=== PATIENT | male | born 1985 | race Caucasian/White ===

== ENCOUNTER 2016-06-12 18:42 | Emergency (ER) | payer OTHER ==
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
[2016-06-12 21:19] VITALS: BP 164/98
== END 2016-06-12 21:17 | disposition home or self-care (01) ==
LOC: ED 18:42
DX: S09.90XA Unspecified injury of head, initial encounter (principal); R51 Headache; M54.2 Cervicalgia; M25.511 Pain in right shoulder; Z87.891 Personal history of nicotine dependence; V49.9XXA Car occupant (driver) (passenger) injured in unspecified traffic accident, initial encounter; Y93.9 Activity, unspecified; Y92.9 Unspecified place or not applicable
CPT/HCPCS: 70450; 72125; 99282

== ENCOUNTER 2016-11-22 10:45 | Observation (INO) | payer BC ==
[2016-11-22] MEDS ORDERED: NS 0.9% 1000 ML* 1,000 ML IV ONE (12:01)
[2016-11-22 12:03] LABS: Hematocrit 43 % (42-52); Hemoglobin 14.1 g/dl (14.0-18.0); Mean Corpuscular HGB Conc 33 g/dl (31-36); Mean Corpuscular Hemoglobin 27 pg (27-31); Mean Corpuscular Volume 83 fL (80-94); Mean Platelet Volume 8 um3 (7.4-10.4); Red Blood Count 5.15 10^6/ul (4.0-5.4); Red Cell Distribution Width 14 % (10.5-15); White Blood Count 7.4 10^3/ul (3.5-10.8)
[2016-11-22] MEDS ORDERED: Nitroglycerin TAB 0.4 MG* 0.4 MG TAB SL ONE (12:03)
--- NOTE | 2016-11-22 12:05 | ED ---
Cheo Steevns Alfonso, scribed for Elizabeth Connell MD on 11/22/16 at 1123 . HPI Chest Pain - HPI Summary HPI Summary: This patient is a 31 year old M BIBA presenting to [facility] with a chief complaint of chest pain since 30 minutes [employer]. The CP radiates to jaw, back, and shoulder blades. Pt states has nausea and SOB with discomfort. Pt states had diaphoresis. Pt was given 324mg ASA, and 0.4 NTG [employer] in ambulance with improvement. Pt denies belching, bloating, or stomach fullnesss. The CC is described as tight, squeezing pain, grabbing and twisting my spine. Pt also reports symptoms are substernal. The patient rates the pain 6/10 at onset and currently 3/10 in severity. Symptoms improved by ambulance treatment. Patient reports lightheadedness, diaphoresis, nausea, Pt was not doing anything strenuous at the time of pain. No h/o similar sx. . Pain not reproducible. FMHx of [place]. Tobacco abuse disorder. Denies substance use and alcohol use. 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 Patients medication reviewed this visit. - History of Current Complaint Chief Complaint: EDChestPainROMI Time Seen by Provider: 11/22/16 11:12 Hx Obtained From: Patient Onset/Duration: Started Hours Ago - this morning Initial Severity: Moderate - 6/10 Current Severity: Mild - 3/10 Pain Intensity: 3 Pain Scale Used: 0-10 Numeric Chest Pain Location: Discrete at: - Substernal Chest Pain Radiates: Yes Chest Pain Radiates To:: Back, Shoulder, Jaw Character: Burning, Other: - tight, "grabbing and twisting my spine" Aggravating Factor(s): Nothing Alleviating Factor(s): Medication - ASA and NTG [employer] by ambulance Associated Signs and Symptoms: Positive: Other: - . Patient reports lightheadedness, SOB, diaphoresis, nausea, weight gain (recent 40 lb) and sinus pressure. Patient denies ear pain, belching, bloating, stomach fullness, and pain when raising arms. - Risk Factors Pulmonary Embolism Risk Factors: Negative - Allergy/Home Medications Allergies/Adverse Reactions: Allergies Allergy/AdvReac Type Severity Reaction Status Date / Time No Known Allergies Allergy Verified 06/12/16 18:56 Home Medications: Home Medications NK [No Home Medications Reported] 11/22/16 [History Confirmed 11/22/16] PMH/Surg Hx/FS Hx/Imm Hx Previously Healthy: Yes Endocrine/Hematology History: Denies: Hx Diabetes, Hx Thyroid Disease Cardiovascular History: Denies: Hx Hypertension Respiratory History: Denies: Hx Asthma, Hx Chronic Obstructive Pulmonary Disease (COPD) GI History: Denies: Hx Ulcer - Surgical History Surgery Procedure, Year, and Place: wisdom teeth Infectious Disease History: No Infectious Disease History: Denies: Hx Hepatitis, Hx Human Immunodeficiency Virus (HIV), History Other Infectious Disease, Traveled Outside the [place] in Last 30 Days - Family History Known Family History: Positive: Hypertension - Social History Occupation: Employed Full-time Lives: With Family Alcohol Use: Rare Substance Use Type: Reports: None Substance Use Comment - Amount & Last Used: ADDERALL Smoking Status (MU): Former Smoker Type: Cigarettes Have You Smoked in the Last Year: No Review of Systems Positive: Skin Diaphoresis, Other - weight gain Eyes: Negative Positive: Other - POSITIVE: sinus pressure. Negative: Ear Ache Cardiovascular: Negative Positive: Shortness Of Breath Positive: Nausea Genitourinary: Negative Musculoskeletal: Negative Skin: Negative Neurological: Other - Lightheadedness Psychological: Normal All Other Systems Reviewed And Are Negative: Yes Physical Exam Triage Information Reviewed: Yes Vital Signs On Initial Exam: Initial Vitals Temp Pulse Resp BP Pulse Ox 99.5 F 69 16 140/73 97 11/22/16 11:02 11/22/16 11:02 11/22/16 11:02 11/22/16 11:02 11/22/16 11:02 Vital Signs Reviewed: Yes Appearance: Positive: Well-Appearing, No Pain Distress, Well-Nourished Skin: Positive: Warm, Skin Color Reflects Adequate Perfusion, Dry Eyes: Positive: Normal, EOMI, DONNIE ENT: Positive: Normal ENT inspection, Hearing grossly normal, Pharynx normal, TMs normal Neck: Positive: Supple, Nontender, No Lymphadenopathy Respiratory/Lung Sounds: Positive: Clear to Auscultation, Breath Sounds Present , Decreased Breath Sounds Cardiovascular: Positive: Normal, RRR, Other - no bruits b/l. Negative: Murmur Abdomen Description: Positive: Nontender, No Organomegaly, Soft Bowel Sounds: Positive: Present Musculoskeletal: Positive: Normal, Strength/ROM Intact, Other - Full AROM x 4 - not able to Neurological: Positive: Normal, Sensory/Motor Intact, Alert, Oriented to Person Place, Time Psychiatric: Positive: Normal AVPU Assessment: Alert - [place] Coma Scale Best Eye Response: 4 - Spontaneous Best Motor Response: 6 - Obeys Commands Best Verbal Response: 5 - Oriented Coma Scale Total: 15 Diagnostics - Vital Signs Vital Signs Temp Pulse Resp BP Pulse Ox 11/22/16 11:02 99.5 F 69 16 140/73 97 - Laboratory Result Diagrams: 11/22/16 11:48 11/22/16 11:48 Lab Statement: Any lab studies that have been ordered have been reviewed, and results considered in the medical decision making process. - CT CTA Chest CT Interpretation Completed By: Radiologist - NORMAL CTA OF THE CHEST. - EKG 1114 Cardiac Rate: NL - BPM 65 EKG Rhythm: Sinus Rhythm EKG Interpretation: Inverted T-wave in III. No acute ST segment. Re-Evaluation - Re-Evaluation First Eval Re-Evaluation Time: 14:24 Change: Improved - reviewed labs and CTA Pt reports pain improved after nitro - will apply paste will discuss with hospitalist for obs admission pt's at bedside - agreement with plan Chest Pain Course/Dx - Course Course Of Treatment: Pt presents with chest pressure, back pain and radiation to jaw. Sx improved with nitro and ASA. Pt without h/o cardiac dx. Will check labs, Ekg, CTA. IVF. Pt given ASA [employer]. anticipate observation - Diagnoses Provider Diagnoses: Chest pain, T wave inversion in EKG - Provider Notifications Discussed Care Of Patient With: Leona Dean MD Time Discussed With Above Provider: 14:29 Instructed by Provider To: Other - Consulted Dr. Dean (hospitalist) who agrees to admit pt for observation. Discharge - Discharge Plan Condition: Improved Disposition: ADMITTED TO [facility] Discharge Disposition Comment: Observation Referrals: No Primary Care Phys,NOPCP [Primary Care Provider] - The documentation as recorded by the Cheo ji Alfonso accurately reflects the service I personally performed and the decisions made by me, Elizabeth Connell MD.
[2016-11-22 12:15] LABS: BUN/Creatinine Ratio 13.1 (8-20); Calcium 8.9 mg/dL (8.6-10.3); EGFR African American 103.7 (>60); EGFR Non-African American 80.6 (>60); Globulin 2.8 g/dL (2-4); Potassium 3.8 mmol/L (3.5-5.0); Total Bilirubin 1.1 mg/dL (0.2-1.0); Total Protein 6.8 g/dL (6.4-8.9)
[2016-11-22] MEDS ORDERED: Iohexol 350* (CONTRAST) 500 ML MDV IV ONE (12:32)
--- NOTE | 2016-11-22 14:10 | RAD ---
INDICATION: Burning chest pain since 1030 hours COMPARISON: None TECHNIQUE: Axial source images were acquired following the administration of 80 mL Omnipaque [address] angiographic technique. Coronal and sagittal reconstructed images were constructed and reviewed. FINDINGS: There there are no filling defects in the pulmonary arteries to indicate acute pulmonary embolic disease. The heart is normal in size. There is no evidence of pericardial effusion. There is no evidence of aortic aneurysm or dissection. There are no focal infiltrates or effusions. There are no pulmonary parenchymal masses. There is no mediastinal, hilar, or axillary lymphadenopathy. The visualized osseous structures appear normal. Limited views of the upper abdomen show no abnormalities. IMPRESSION: Normal CTA of the chest.
[2016-11-22] MEDS ORDERED: Nitroglycerin 2% OINT* 1 GM PAK TOPICAL ONE (14:23)
[2016-11-22] MEDS ORDERED: PROCHLORPERAZINE INJ 5 MG/ML 2 ML VIAL IV PRN (16:22)
[2016-11-22] MEDS ORDERED: Acetaminophen TAB* 325 MG PO PRN (16:22)
[2016-11-22] MEDS ORDERED: Morphine INJ* 2 MG/ML 1 ML SYRINGE IV PRN (16:22)
[2016-11-22] MEDS ORDERED: Nitroglycerin TAB 0.4 MG* 0.4 MG TAB SL PRN (16:25)
[2016-11-22] MEDS: Heparin VIAL(*) 5000 UNITS/ML VIAL (FIVE THOUSAND) SUBCUT SCH (21:31)
--- NOTE | 2016-11-22 22:04 | HP ---
HISTORY AND PHYSICAL: DATE OF ADMISSION: 11/22/16 TIME OF EVALUATION: 3 p.m. PRIMARY CARE PHYSICIAN: The patient has no primary care provider. CHIEF COMPLAINT: Chest pain. HISTORY OF PRESENT ILLNESS: Mr. Crystal is a 31-year-old male with a past medical history of obesity that presents to the emergency room with complaints of severe chest pain. 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 He states the pain was a 7/10 intensity, pressure like in nature. He decided to walk around his office to see if he would have any relief, but he did not. This was associated with mild shortness of breath and his work colleagues pointed that he was very sweaty. He had some nausea and after 10 minutes, the pain was too severe so EMS was summoned. The patient states his pain was a 7/ 10. He received the first nitroglycerin dose in the ambulance and the pain was down to a 5 when he came to the emergency room and after receiving his second nitro, he states that he is almost pain free at this time. He states that for a couple of months he has had similar episodes of pain, but much milder, 2/10 intensity, lasting 20 to 30 seconds, sometimes at rest, sometimes with exertion, but he could not pinpoint any alleviating or precipitating factors. In fact, he states that he hiked [place] last week with his family and he had no chest pain or shortness of breath after it. He denies fever, chills, cough, or any other complaints. The patient had a very rich meal with friends yesterday that consisted of ribs, Mac 'n' Cheese with [place] and Casserole and he also had 4 or 5 hard ciders, but he states that this kind of meal during the weekends is not unusual for him and that he has no indigestion or heartburn. PAST MEDICAL HISTORY: 1. Obesity with a BMI of 38. 2. Prior history of tobacco abuse. MEDICATION LIST: None. ALLERGIES: No known drug allergies. FAMILY HISTORY: There is a strong family history of diabetes, hypertension. His grandfather has a history of heart problems, but as far as he knows, no one had a heart attack. SOCIAL HISTORY: The patient used to be a smoker since his early 20s, only 2 or 3 cigarettes a day and he quit a couple of months ago. He states that he drinks sporadically, but he actually had 4 hard ciders yesterday. He denies any drug use. 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 Surrogate decision maker is his , Lorrie Crystal, phone number is [phone]. REVIEW OF SYSTEMS: A 14-point review of systems was performed and all the pertinent negatives and positive findings are in the HPI. PHYSICAL EXAMINATION GENERAL: The patient is a pleasant, young, obese male, sitting up in the ED stretcher, in no acute distress. VITAL SIGNS: Temperature is 99.5, heart rate is 69, respiratory rate is 20, oxygen saturation is 97% on room air, blood pressure is 124/74, HEENT: Pupils are equal. Moist mucous membranes. CHEST: Breath sounds present bilaterally with no added sounds. CVS: Normal S1, S2. Regular rate and rhythm. ABDOMEN: Obese, soft, nontender, nondistended. Bowel sounds are present. EXTREMITIES: No edema. NEUROLOGIC: He is alert, awake, oriented x3. Able to move all 4 extremities. LABORATORY AND IMAGING DATA: The patient had a CBC that showed a WBC of 7.4, hemoglobin of 14.1, hematocrit of 43, platelets of 197 with 67% neutrophils. Chemistry showed a sodium of 134, potassium of 3.8, chloride of 103, bicarb of 27, BUN of 14, creatinine of 1.07, glucose of 113, calcium of 8.9. Magnesium of 2. Total bilirubin 1.1, AST 22, ALT 30. Troponin is 0. Lipase is 13. EKG done on 11/22/16 at 11:14 a.m. showed sinus rhythm at 65 beats per minute with no ST-T changes, only a normal early repolarization pattern in the anterior leads. CTA of the chest was a normal CTA of the chest. ASSESSMENT AND PLAN: Mr. Crystal is a 31-year-old male with a past medical history of obesity, prior history of tobacco abuse that presents to the emergency room with complaints of chest pain that was relieved by nitro. , 1. Chest pain, rule out acute coronary syndrome. The patient will be admitted as observation to the telemetry floor. We are going to check serial troponins. If acute coronary syndrome is ruled out, he will undergo exercise Myoview stress test tomorrow morning. The major concern at this point is that his pain is cardiac in nature, but considering the very heavy meal he had yesterday, I believe it could also be GI. He could have esophageal spasm that was relieved by nitroglycerin. If his cardiac workup is negative, I believe he will benefit of arranging primary care as outpatient to have further GI workup performed. 2. DVT prophylaxis. The patient has a score of 1 on a DVT Prophylaxis Risk Assessment Guide, but he is not really ambulating a lot at this point, so he will be started on subcutaneous heparin. 3. Code status is full. TIME SPENT: Approximately 55 minutes were spent with the patient interview, medical record review, physical examination to complete the admission, more than half of this time spent [id number] with the patient in coordination of care. [id number]/CPS #: [id number] MTDD
[2016-11-23] MEDS: Heparin VIAL(*) 5000 UNITS/ML VIAL (FIVE THOUSAND) SUBCUT SCH ×3 (06:08→22:01)
[2016-11-23] MEDS: Aspirin EC Low Dose* 81 MG TAB.EC PO SCH (11:03)
[2016-11-23 11:36] LABS: HDL Cholesterol 39.2 mg/dL
--- NOTE | 2016-11-23 15:25 | PN ---
Subjective Date of Service: 11/23/16 Interval History: HOSPITALIST PROGRESS NOTE Patient seen and examined at bedside. He feels well today, no further episodes of chest pain. Family History: Unchanged from Admission Social History: Unchanged from Admission Past Medical History: Unchanged from Admission Objective Active Medications: Acetaminophen (Tylenol Tab*) 650 mg PO Q6H PRN PRN Reason: pain/fever Aspirin (Aspirin Ec Low Dose*) 81 mg PO DAILY [facility] Last Admin: 11/23/16 11:03 Dose: Not Given Heparin Sodium (Porcine) (Heparin Vial(*)) 5,000 units SUBCUT Q8HR [facility] Last Admin: 11/23/16 14:38 Dose: Not Given Morphine Sulfate (Morphine Inj (Syringe)*) 2 mg IV Q4H PRN PRN Reason: PAIN Nitroglycerin (Nitroglycerin Tab 0.4 Mg*) 0.4 mg SL Q5M PRN PRN Reason: ANGINA Prochlorperazine Edisylate (Compazine Inj*) 5 mg IV Q6H PRN PRN Reason: NAUSEA/VOMITING Vital Signs 11/23/16 11:35 Temperature 98.4 F Pulse Rate 61 Respiratory 16 Rate Blood Pressure 114/75 (mmHg) O2 Sat by Pulse 95 Oximetry Oxygen Devices in Use Now: None Appearance: Young gentleman lying in bed in [facility]. Eyes: No Scleral Icterus Ears/Nose/Mouth/Throat: Mucous Membranes Moist Neck: Trachea Midline Respiratory: Symmetrical Chest Expansion and Respiratory Effort, Clear to Auscultation Cardiovascular: NL Sounds; No Murmurs; No JVD, RRR Extremities: No Edema Neurological: Alert and Oriented x 3, NL Muscle Strength and Tone Lines/Tubes/Other Access: Clean, Dry and Intact Peripheral IV Nutrition: Taking PO's Result Diagrams: 11/22/16 11:48 11/22/16 11:48 Assess/Plan/Problems-Billing Assessment: Mr. Crystal is a 31yo M with PMH of obesity, prior h/o tobacco use, who presented to ED with c/o CP. - Patient Problems (1) Chest pain Comment: - ACS ruled out. - For second part of his stress test tomorrow. - Continue to monitor. (2) DVT prophylaxis Comment: - SQ heparin. (3) Full code status Status and Disposition: OBV. Anticipate d/c in AM if stress test negative.
[2016-11-24] MEDS: Heparin VIAL(*) 5000 UNITS/ML VIAL (FIVE THOUSAND) SUBCUT SCH (06:24)
[2016-11-24] MEDS: Aspirin EC Low Dose* 81 MG TAB.EC PO SCH (08:48)
--- NOTE | 2016-11-24 09:15 | RAD ---
Edited for charges. INDICATION: Chest pain, former tobacco use. Family history of heart disease. COMPARISON: No relevant prior exams available on the [facility] PACS for comparison. TECHNIQUE: November 24, 2016, 26.310 mCi of Tc-99m Myoview were administered IV. SPECT images of the heart were obtained. November 23, 2016. Under the direction of Dr. Bar, an exercise stress test was performed. The patient achieved a peak heart rate of 176 bpm, 93 % of the age-predicted maximum. Subsequently, the patient was given an IV injection of 26.600 mCi Tc-99m Myoview. SPECT images of the heart were obtained and a gated wall motion study was performed. FINDINGS: Gated wall motion images were obtained at stress and demonstrate wall motion to be within normal limits. The calculated left ventricular ejection fraction is 58 % at stress and 58 % at rest. Estimated LEFT ventricular end diastolic volume is 130 mL at stress and 159 mL at rest. TID 0.7. Diaphragmatic attenuation noted. Based on review of the attenuation corrected and non corrected images the distribution of radiopharmaceutical within the myocardium on the stress and rest images is within normal limits. No fixed or reversible regions of hypoperfusion evident. IMPRESSION: 1. No evidence for stress induced myocardial ischemia or presence of an infarct. 2. Normal left ventricular wall motion and ejection fraction. ASSESSMENT: LOW RISK. Based on imaging criteria from ACC/AHA 2002 Guideline Update for the Management of Patients With Chronic Stable Angina Table 23. Noninvasive Risk Stratification. MTDD
[2016-11-24 11:56] VITALS: BP 139/74
--- NOTE | 2016-11-25 06:06 | DS ---
CC: Dr. Denny * DISCHARGE SUMMARY: DATE OF ADMISSION: 11/22/16 DATE OF DISCHARGE: 11/24/16 DISCHARGE DIAGNOSIS: Atypical chest pain, acute coronary syndrome ruled out, likely esophageal in nature. SECONDARY DIAGNOSIS: Obesity. MEDICATION LIST: None. HOSPITAL COURSE: Mr. Crystal is a 31-year-old male with a past medical history as stated above that presented to the emergency room with complaints of severe chest pain. The patient states that he was in his usual state of health, working at his computer when he developed pain between his shoulder blades radiating to his chest, shoulders, and going up to the left side of his jaw, pressure in nature associated with diaphoresis. For more details about his presentation, I refer you to his history and physical. The patient was admitted to the telemetry floor for further workup. He had a CTA of the chest that showed no filling defect in the pulmonary arteries to indicate acute pulmonary embolic disease. There was no evidence of aortic aneurysm or dissection. It was basically a normal CTA of the chest. He had no significant changes on his EKG. No significant arrhythmias on telemetry and serial troponins were negative. He underwent a 2-day exercise Myoview stress test that showed no evidence for stress-induced myocardial ischemia or process of an infarct with a normal left ventricular wall motion and ejection fraction. I suspect his episode of chest pain is likely esophageal in nature. The day prior to the beginning of his symptoms, the patient had a very rich meal of ribs , Mac 'n' Cheese with kaur and some sort of casserole and also he had 4 or 5 hard ciders with it. At this point, he would prefer not to take any medications , so his plan is to improve his diet. He now has a primary care provider (Dr. Denny) and he will see him on December 01. If he continues to have episodes like this, I believe he should be started on a PPI, but the patient would rather try to work on his eating habits first. He is medically stable to be discharged home today. The patient also had a lipid profile performed and it showed triglycerides of 91 , total cholesterol of 138, LDL of 81 with a HDL of 39.2. PHYSICAL EXAMINATION: Vital Signs: Temperature 98.0, heart rate 78, respiratory rate 16, oxygen saturation is 97% on room air, blood pressure is 139 /74. General: The patient is a young male sitting up in bed in no acute distress. CVS: Normal S1, S2. Regular rate and rhythm. Chest: Breath sounds present bilaterally with no added sounds. Abdomen: Obese, soft. Bowel sounds present. Extremities: No edema. Neuro: He is alert and oriented x3. Able to move all 4 extremities. DIET: Regular diet. ACTIVITY: As tolerated. DISPOSITION: To home. STATUS WHILE IN THE HOSPITAL: Observation. Please keep in mind, this is a summarized version of this patient's hospital stay. If you need more information, please feel free to call me at [phone] or please obtain the full medical records. TIME SPENT: Approximately 45 minutes was spent to complete the discharge. [id number] #: [id number] MTDD
== END 2016-11-24 11:55 | disposition home or self-care (01) ==
LOC: ED 10:45 → MEDTELE 15:25
PROVIDERS: ADMIT Internal Medicine; ATTEND Internal Medicine
DX: R07.89 Other chest pain (principal); R06.02 Shortness of breath; E66.9 Obesity, unspecified; Z87.891 Personal history of nicotine dependence; Z83.3 Family history of diabetes mellitus; Z82.49 Family history of ischemic heart disease and other diseases of the circulatory system; R61 Generalized hyperhidrosis
CPT/HCPCS: 36415; 71275; 78452; 80053; 80061; 83690; 83735; 84484; 85025; 86900; 86901; 93005; 93017; 96360; 96372; 99284; A9270-GY; A9502; G0378; J1644; Q9967

== ENCOUNTER 2017-10-29 13:05 | Emergency (ER) | payer BC, OTHER ==
[2017-10-29] MEDS ORDERED: NS 0.9% 1000 ML* 1,000 ML IV ONE (13:57)
--- NOTE | 2017-10-29 14:06 | ED ---
Abdominal Pain/Male - HPI Summary HPI Summary: This is [facility] documenting for attending Dr. Court Connell This patient is a 31 year old M presenting to [facility] with a chief complaint of abd pain since 10/24 or 10/25. He endorses the pain as constant, located in his right flank, RUQ, and RLQ. Pt endorses nausea, decreased appetite, and dysuria. He denies emesis. PMHx kidney stones in the right side. Pt denies SHx cholecystectomy. Pt states he ate 1 granola bar this AM, nothing else. He denies drinking and smoking. - History of Current Complaint Chief Complaint: EDFlankPain Stated Complaint: ABD/FLANK PAIN Time Seen by Provider: 10/29/17 13:53 Hx Obtained From: Patient Onset/Duration: Lasting Days, Still Present Timing: Constant Severity Initially: Moderate Severity Currently: Moderate Pain Intensity: 6 Pain Scale Used: 0-10 Numeric Location: Discrete At: RUQ, Discrete At: RLQ, Flank - right Radiates: No Aggravating Factor(s): Nothing Alleviating Factor(s): Nothing Associated Signs And Symptoms: Positive: Urinary Symptoms, Decreased Appetite, Nausea. Negative: Fever - Allergies/Home Medications Allergies/Adverse Reactions: Allergies Allergy/AdvReac Type Severity Reaction Status Date / Time No Known Allergies Allergy Verified 10/29/17 13:11 PMH/Surg Hx/FS Hx/Imm Hx Endocrine/Hematology History: Denies: Hx Diabetes, Hx Thyroid Disease Cardiovascular History: Denies: Hx Angina, Hx Coronary Artery Disease, Hx Hypercholesterolemia, Hx Hypertension, Hx Myocardial Infarction, Hx Valvular Heart Disease Respiratory History: Denies: Hx Asthma, Hx Chronic Obstructive Pulmonary Disease (COPD) GI History: Denies: Hx Ulcer Sensory History: Denies: Hx Contacts or Glasses, Hx Legally Blind, Hx Deafness, Hx Hearing Aid Opthamlomology History: Denies: Hx Contacts or Glasses, Hx Legally Blind EENT History: Denies: Hx Deafness - Surgical History Surgery Procedure, Year, and Place: wisdom teeth Infectious Disease History: No Infectious Disease History: Denies: Hx Hepatitis, Hx Human Immunodeficiency Virus (HIV), History Other Infectious Disease, Traveled Outside the [place] in Last 30 Days - Family History Known Family History: Positive: Hypertension - Social History Alcohol Use: None Hx Substance Use: No Substance Use Type: Reports: None Substance Use Comment - Amount & Last Used: ADDERALL Smoking Status (MU): Former Smoker Type: Cigarettes Have You Smoked in the Last Year: No Review of Systems Negative: Fever Positive: Abdominal Pain, Nausea. Negative: Vomiting Positive: dysuria, flank pain All Other Systems Reviewed And Are Negative: Yes Physical Exam - Summary Physical Exam Summary: Appearance: Well appearing, no pain distress Skin: warm, dry, reflects adequate perfusion Head/face: normal Eyes: EOMI, DONNIE ENT: normal Neck: supple, non-tender Respiratory: CTA, breath sounds present Cardiovascular: RRR, pulses symmetrical Abdomen: tenderness in RUQ, RLQ, soft Bowel: present Musculoskeletal: normal, strength/ROM intact Neuro: normal, sensory motor intact, A&Ox3 Triage Information Reviewed: Yes Vital Signs On Initial Exam: Initial Vitals Temp Pulse Resp BP Pulse Ox 97.9 F 78 17 164/102 97 10/29/17 13:08 10/29/17 13:08 10/29/17 13:08 10/29/17 13:08 10/29/17 13:08 Vital Signs Reviewed: Yes Diagnostics - Vital Signs Vital Signs Temp Pulse Resp BP Pulse Ox 10/29/17 13:08 97.9 F 78 17 164/102 97 - Laboratory Result Diagrams: 10/29/17 14:12 10/29/17 16:29 Lab Statement: Any lab studies that have been ordered have been reviewed, and results considered in the medical decision making process. - CT CT A/P CT Interpretation: No Acute Changes CT Interpretation Completed By: Radiologist - No acute CT findings. No mass or inflammatory changes. - Ultrasound No standard instances Ultrasound Interpretation: No Acute Changes Ultrasound Interpretation Completed By: Radiologist - Mild hepatomegaly with hepatic steatosis, otherwise negative. Dr. Yun has reviewed this report. Re-Evaluation - Re-Evaluation First Eval Re-Evaluation Time: 17:31 Change: Unchanged Comment: Discussed (-) CT results, pt still in pain, discussed obtaining US GB. Second Eval Re-Evaluation Time: 18:48 Change: Unchanged Comment: Discussed (-) US results, discharge. Abdominal Pain Fem Course/Dx - Course Course Of Treatment: A 31-year-old M presents to the ED with a CC of abd pain for 5 days. (+) flank, RUQ, RLQ pain, nausea, decreased appetite, dysuria. (-) emesis. PMHx renal calculi right side. Only eaten 1 granola bar this AM, no other food. A CT A/P was (-) . A GB US showed mild hepatomegaly with steatosis, but was otherwise (-). In the ED course, pt was given zofran, morphine, omnipaque, and nl saline. - Diagnoses Provider Diagnoses: Nonspecific abdominal pain Discharge - Sign-Out/Discharge Documenting (check all that apply): Patient Departure - discharge - Discharge Plan Condition: Stable Disposition: HOME Prescriptions: Ibuprofen TAB* [Motrin TAB* 600 MG] 600 mg PO Q8H PRN #15 tab MDD 3 PRN Reason: Pain Patient Education Materials: Abdominal Pain (ED) Referrals: Orlando Denny MD [Primary Care Provider] - 3 Days Additional Instructions: Return to the emergency department for any new or worsening symptoms. - Billing Disposition and Condition Condition: STABLE Disposition: Home
[2017-10-29 14:26] LABS: ABS Basophils 0.1 10^3/ul (0-0.2); ABS Eosinophils 0.3 10^3/ul (0-0.6); ABS Lymphocytes 1.8 10^3/ul (1.0-4.8); ABS Monocytes 0.8 10^3/ul (0-0.8); ABS Neutrophils 4.2 10^3/ul (1.5-7.7); ABS Nucleated RBC 0.1 10^3/ul; Eosinophil % 3.8 % (0-6); Hematocrit 43 % (42-52); Hemoglobin 14.6 g/dl (14.0-18.0); Lymphocyte % 25.2 % (25-47); Mean Corpuscular HGB Conc 34 g/dl (31-36); Mean Corpuscular Hemoglobin 28 pg (27-31); Mean Corpuscular Volume 81 fL (80-94); Mean Platelet Volume 7.7 um3 (7.4-10.4); Nucleated Red Blood Cells % 0.6; Platelet Count 227 10^3/ul (150-450); Red Blood Count 5.31 10^6/ul (4.00-5.40); Red Cell Distribution Width 14 % (10.5-15); White Blood Count 7.1 10^3/ul (3.5-10.8)
[2017-10-29 14:41] LABS: EGFR Non-African American 85.2 (>60)
[2017-10-29] MEDS ORDERED: Iohexol 300* (CONTRAST) 10 ML SDV IV ONE (15:03)
[2017-10-29 15:30] LABS: Urine Appearance Clear; Urine Blood Negative (Negative); Urine Color Yellow; Urine Ketones Negative (Negative); Urine Protein Negative (Negative); Urine Red Blood Cell Absent (Absent); Urine Specific Gravity 1.018 (1.010-1.030); Urine Urobilinogen Negative (Negative); Urine White Blood Cell Trace(0-5/hpf) (Absent)
[2017-10-29] MEDS ORDERED: Morphine VIAL* 4 MG/ML VIAL (1 ml vial) IV ONE (16:20)
[2017-10-29] MEDS ORDERED: Ondansetron INJ* 2 MG/ML VIAL IV ONE (16:21)
[2017-10-29] MEDS ORDERED: Morphine INJ* 2 MG/ML 1 ML SYRINGE (TWO MG - NEW SYRINGE VERSION) ONE (16:25)
--- NOTE | 2017-10-29 17:25 | RAD ---
INDICATION: Right lower quadrant pain. Evaluate for acute appendicitis COMPARISON: CT December 23, 2014 TECHNIQUE: Axial source images were obtained from the hemidiaphragms to the symphysis pubis following administration of oral and intravenous contrast. 150 mL Omnipaque 300 was utilized. Coronal and sagittal reconstructed images were acquired. Lung bases: The lung bases are clear. Liver: The liver is normal in size. There are no masses. There is no ductal dilatation. Gallbladder: There are no calcified gallstones. There is no evidence of wall thickening or pericholecystic fluid. Spleen: The spleen is normal in size. There are no masses. Pancreas: There is no focal pancreatic mass or ductal dilatation. Adrenal glands: There is no evidence of adrenal mass. Kidneys: The kidneys are normal in size and position. There are prompt nephrograms and there is prompt excretion bilaterally. There are no renal parenchymal masses. There is no evidence of nephrolithiasis. Adenopathy: There is no evidence of adenopathy by size criteria. Fluid collections: There are no free or localized fluid collections. Vessels:There are no significant atherosclerotic changes involving the aorta. There is no focal aneurysm. The iliac vessels are normal in caliber. The IVC appears normal. GI tract: There are no acute CT bowel findings. There is no obstruction. The stomach and small bowel appear normal. The lower GI tract is normal. The cecum, ileocecal valve, and terminal ileum appear normal. The appendix is visualized and appear normal. Pelvic organs: The prostate and seminal vesicles appear normal Bladder: There are no bladder masses. Abdominal and pelvic soft tissues: There is a fat-containing left inguinal hernia, unchanged. Osseous structures: There is chronic L5 spondylolysis without associated anterolisthesis Other: None IMPRESSION: NO ACUTE CT FINDINGS. NO MASS OR INFLAMMATORY CHANGES
--- NOTE | 2017-10-29 18:43 | RAD ---
INDICATION: Right lower quadrant pain. Evaluate for acute appendicitis. Gallstones. Cholecystitis. COMPARISON: CT abdomen and pelvis same date TECHNIQUE: Longitudinal and transverse scans of the right upper quadrant were obtained. Doppler interrogation of the hepatic and portal venous system was performed. FINDINGS: Liver: There is hepatomegaly with hepatic steatosis. There are no masses . The liver measures 18 cm in cephalocaudal dimension. Vessels: There is normal hepatic and portal venous flow. Bile ducts: There is no evidence of intrahepatic or extrahepatic ductal dilatation. The common duct measures 0.4 cm. Gallbladder: The sonographic appearance of the gallbladder is normal. There is no evidence of cholelithiasis, thickening of the gallbladder wall, or pericholecystic fluid. Pancreas: The visualized pancreas appears normal Right kidney: The right kidney is normal in size and echogenicity. There are no masses or calculi. There is no evidence of hydronephrosis. The right kidney measures 13.5 x 6.6 x 6.9 cm. IVC and aorta: The aorta and superior vena cava appear normal. Fluid: There is no ascites. Other: None. IMPRESSION: Mild hepatomegaly with hepatic steatosis, otherwise negative
[2017-10-29 19:21] VITALS: BP 124/82
== END 2017-10-29 19:38 | disposition home or self-care (01) ==
LOC: ED 13:05
DX: R10.11 Right upper quadrant pain (principal); R10.31 Right lower quadrant pain; R11.0 Nausea; R30.0 Dysuria; R16.0 Hepatomegaly, not elsewhere classified; Z87.442 Personal history of urinary calculi; Z82.49 Family history of ischemic heart disease and other diseases of the circulatory system; Z87.891 Personal history of nicotine dependence
CPT/HCPCS: 36415; 74177; 76705; 80053; 81003; 81015; 83605; 83690; 84484; 85025; 85610; 85730; 87086; 96361; 96374; 96375; 99283; J2270; J2405; Q9967

== ENCOUNTER 2018-12-09 08:15 | Emergency (ER) | payer BC ==
[2018-12-09] MEDS ORDERED: Ketorolac INJ* 30 MG/ML 1 ML VIAL IV PUSH ONE (08:46)
[2018-12-09] MEDS ORDERED: NS 0.9% 1000 ML** 1,000 ML IV ONE (08:46)
[2018-12-09] MEDS ORDERED: Ondansetron INJ* 2 MG/ML VIAL IV ONE (08:46)
--- NOTE | 2018-12-09 08:47 | ED ---
Abdominal Pain/Male - HPI Summary HPI Summary: This patient is a 33 year old M presenting to ED with a chief complaint of RLQ abdominal pain that radiates to the R groin since 11/25/18. The pain is described as constant and aching. Patient also reports difficulty urinating and pedal edema. Patient saw UC two days ago. They performed urinalysis and bloodwork, which were negative. Patient has a hx of kidney stones, but states this is different. The patient rates the pain 6/10 in severity. Symptoms aggravated by nothing. Symptoms alleviated by nothing. Patient reports nausea, R testicular pain. Patient denies fever, chills, vomiting, burning while urination, SOB. PSHx of vasectomy. - History of Current Complaint Chief Complaint: EDAbdPain Stated Complaint: ABOMINAL AND GROIN PAIN/EDEMA PER PT Time Seen by Provider: 12/09/18 08:33 Hx Obtained From: Patient Onset/Duration: Lasting Weeks - Since 11/25/18, Still Present Timing: Constant, Lasting Weeks - Since 11/25/18 Severity Initially: Moderate Severity Currently: Moderate Pain Intensity: 6 Pain Scale Used: 0-10 Numeric Location: Discrete At: RLQ Radiates: Yes Radiates to: Other - Groin Character: Other: - Aching Aggravating Factor(s): Nothing Alleviating Factor(s): Nothing Associated Signs And Symptoms: Positive: Negative - SOB, chills, Urinary Symptoms - Difficulty urinating, negative burning, Nausea, Other - Edema, R testicular pain. Negative: Fever, Vomiting - Allergies/Home Medications Allergies/Adverse Reactions: Allergies Allergy/AdvReac Type Severity Reaction Status Date / Time No Known Allergies Allergy Verified 12/09/18 08:31 Home Medications: Home Medications NK [No Home Medications Reported] 12/09/18 [History Confirmed 12/09/18] PMH/Surg Hx/FS Hx/Imm Hx Endocrine/Hematology History: Denies: Hx Diabetes, Hx Thyroid Disease Cardiovascular History: Denies: Hx Angina, Hx Coronary Artery Disease, Hx Hypercholesterolemia, Hx Hypertension, Hx Myocardial Infarction, Hx Valvular Heart Disease Respiratory History: Denies: Hx Asthma, Hx Chronic Obstructive Pulmonary Disease (COPD) GI History: Denies: Hx Ulcer History: Denies: Hx Renal Disease Sensory History: Denies: Hx Contacts or Glasses, Hx Legally Blind, Hx Deafness, Hx Hearing Aid Opthamlomology History: Denies: Hx Contacts or Glasses, Hx Legally Blind - Surgical History Surgery Procedure, Year, and Place: wisdom teeth. Vasectomy 2018 Infectious Disease History: No Infectious Disease History: Denies: Hx Hepatitis, Hx Human Immunodeficiency Virus (HIV), History Other Infectious Disease, Traveled Outside the [place] in Last 30 Days - Family History Known Family History: Positive: Hypertension - Social History Alcohol Use: None Hx Substance Use: No Substance Use Type: Reports: None Hx Tobacco Use: Yes Smoking Status (MU): Former Smoker Type: Cigarettes Have You Smoked in the Last Year: No Review of Systems Negative: Fever, Chills Negative: Shortness Of Breath Positive: Abdominal Pain, Nausea. Negative: Vomiting Genitourinary: Other - Decreased/difficulty urinating, R testicular pain Negative: burning Positive: Edema All Other Systems Reviewed And Are Negative: Yes Physical Exam - Summary Physical Exam Summary: GENERAL: Patient is a well-developed and nourished M who is lying comfortable in the stretcher. Patient is not in any acute respiratory distress. HEAD AND FACE: Normocephalic EYES: PERRLA, EOMI x 2. EARS: Hearing grossly intact. MOUTH: Oropharynx within normal limits. NECK: Supple, trachea is midline, no adenopathy, no JVD, no carotid bruit. CHEST: Symmetric, no tenderness at palpation LUNGS: Clear to auscultation bilaterally. No wheezing or crackles. CVS: Regular rate and rhythm, S1 and S2 present, no murmurs or gallops appreciated. ABDOMEN: Tenderness to palpation in right groin and RLQ without rebound or guarding. GENITOURINARY: Aletheia, female RN present as supervisor carton and can supply witness. No tenderness to palpation in testicular area, no redness or warmth. EXTREMITIES: Full ROM in all major joints, no edema, no cyanosis or clubbing. NEURO: Alert and oriented x 3. No acute neurological deficits. Speech is normal and follows commands. SKIN: Dry and warm Triage Information Reviewed: Yes Vital Signs On Initial Exam: Initial Vitals Temp Pulse Resp BP Pulse Ox 98.6 F 76 16 155/96 97 12/09/18 08:17 12/09/18 08:17 12/09/18 08:17 12/09/18 08:17 12/09/18 08:17 Vital Signs Reviewed: Yes Diagnostics - Vital Signs Vital Signs Temp Pulse Resp BP Pulse Ox 12/09/18 08:17 98.6 F 76 16 155/96 97 - Laboratory Result Diagrams: 12/09/18 09:04 12/09/18 09:04 Lab Statement: Any lab studies that have been ordered have been reviewed, and results considered in the medical decision making process. - CT A/P CT Interpretation Completed By: Radiologist Summary of CT Findings: #. Normal appendix documented. No pathologic process of the alimentary tract evident. #. Negative for obstructive uropathy. #. Unchanged small fat-containing LEFT inguinal hernia without inflammatory change. #. No acute abdominal pelvic pathologic process evident. Dr. Jacob has reviewed this radiology report. Re-Evaluation - Re-Evaluation First Eval Re-Evaluation Time: 11:05 Comment: Discussed results with patient. Patient will be discharged home with dx of RLQ pain and left inguinal hernia. Patient understands and agrees with this plan. Patient states he will follow-up with primary care. Abdominal Pain Male Course/Dx - Course Course Of Treatment: This patient is a 33 year old M presenting to ED with a chief complaint of RLQ abdominal pain that radiates to the R groin since . In the ED course, patient received Toradol, fluids, and Zofran. UA obtained without abnormality. Blood work without abnormality except APTT 39.0, creatinine 1.18, glucose 140, total bili 1.40, CRP 14.27. CT A/P revealed #. Normal appendix documented. No pathologic process of the alimentary tract evident. #. Negative for obstructive uropathy. #. Unchanged small fat- containing LEFT inguinal hernia without inflammatory change. #. No acute abdominal pelvic pathologic process evident. Dr. Jacob has reviewed this radiology report. I discussed results with patient, and he reports feeling better. He is hemodynamically stable and safe for discharge. Strict return precautions given and he will otherwise follow up with his PCP. - Diagnoses Provider Diagnoses: RLQ abdominal pain, Left inguinal hernia Discharge ED - Sign-Out/Discharge Documenting (check all that apply): Patient Departure - Discharge Patient Received Moderate/Deep Sedation with Procedure: No - Discharge Plan Condition: Stable Disposition: HOME Patient Education Materials: Inguinal Hernia (ED), Abdominal Pain (ED) Referrals: Orlando Denny MD [Primary Care Provider] - 3 Days Additional Instructions: Follow up with your primary care physician in 1-3 days. RETURN TO THE EMERGENCY DEPARTMENT FOR CHANGING OR WORSENING SYMPTOMS. - Billing Disposition and Condition Condition: STABLE Disposition: Home - Attestation Statements Document Initiated by Leland: Yes Documenting Scribe: Amari Fang Provider For Whom Leland is Documenting (Include Credential): Felicia Jacob MD Scribe Attestation: IAmari, scribed for Felicia Jacob MD on 12/09/18 at 1153. Scribe Documentation Reviewed: Yes Provider Attestation: The documentation as recorded by the albertibeAmari accurately reflects the service I personally performed and the decisions made by me, Felicia Jacob MD Status of Scribe Document: Viewed
[2018-12-09 09:12] LABS: ABS Eosinophils 0.2 10^3/ul (0-0.6); ABS Lymphocytes 1.3 10^3/ul (1.0-4.8); ABS Monocytes 0.5 10^3/ul (0-0.8); ABS Neutrophils 4.2 10^3/ul (1.5-7.7); Eosinophil % 2.5 %; Hematocrit 44 % (42-52); Hemoglobin 14.8 g/dL (14.0-18.0); Lymphocyte % 21.5 %; Mean Corpuscular HGB Conc 34 g/dL (31-36); Mean Corpuscular Hemoglobin 28 pg (27-31); Mean Corpuscular Volume 81 fL (80-94); Mean Platelet Volume 7.6 fL (7.4-10.4); Platelet Count 206 10^3/uL (150-450); Red Blood Count 5.36 10^6 /uL (4.18-5.48); Red Cell Distribution Width 13 % (10-15); White Blood Count 6.2 10^3/uL (3.5-10.8)
[2018-12-09 09:32] LABS: INR 1.09 (0.82-1.09)
[2018-12-09 09:35] LABS: Albumin 4.3 g/dL (3.2-5.2); Albumin/Globulin Ratio 1.5 (1-3); BUN/Creatinine Ratio 10.2 (8-20); C Reactive Protein 14.27 mg/L (<8.01); Calcium 9.6 mg/dL (8.6-10.3); EGFR Non-African American 71.1 (>60); Globulin 2.8 g/dL (2-4); Potassium 3.8 mmol/L (3.5-5.0); Total Bilirubin 1.4 mg/dL (0.2-1.0); Total Protein 7.1 g/dL (6.4-8.9)
[2018-12-09] MEDS ORDERED: Iohexol 300* (CONTRAST) 10 ML SDV IV ONE (09:38)
[2018-12-09 09:58] LABS: Urine Appearance Clear; Urine Bilirubin Negative (Negative); Urine Blood Negative (Negative); Urine Color Yellow; Urine Glucose Negative (Negative); Urine Ketones Negative (Negative); Urine Nitrite Negative (Negative); Urine Protein Negative (Negative); Urine Specific Gravity 1.012 (1.010-1.030); Urine Urobilinogen Negative (Negative)
[2018-12-09 11:18] VITALS: BP 137/64
[2018-12-11 13:49] LABS: Chlamydia trachomatis NAA Negative (Negative); Neisseria gonorrhoeae (GC) NAA Negative (Negative)
== END 2018-12-09 11:22 | disposition home or self-care (01) ==
LOC: ED 08:15
DX: R10.31 Right lower quadrant pain (principal); K40.90 Unilateral inguinal hernia, without obstruction or gangrene, not specified as recurrent; Z87.891 Personal history of nicotine dependence; Z98.52 Vasectomy status
CPT/HCPCS: 36415; 74177; 80053; 81003; 83605; 83690; 85025; 85610; 85730; 86140; 87491; 87591; 96361; 96374; 96375; 99282; J1885; J2405; Q9967

== ENCOUNTER 2018-12-12 15:20 | Emergency (ER) | payer BC ==
[2018-12-12 15:43] LABS: ABS Basophils 0.1 10^3/ul (0-0.2); ABS Eosinophils 0.3 10^3/ul (0-0.6); ABS Lymphocytes 1.8 10^3/ul (1.0-4.8); ABS Monocytes 0.7 10^3/ul (0-0.8); Eosinophil % 4.1 %; Hematocrit 44 % (42-52); Hemoglobin 15.2 g/dL (14.0-18.0); Lymphocyte % 22.7 %; Mean Corpuscular HGB Conc 35 g/dL (31-36); Mean Corpuscular Hemoglobin 28 pg (27-31); Mean Corpuscular Volume 81 fL (80-94); Mean Platelet Volume 7.5 fL (7.4-10.4); Nucleated Red Blood Cells % 0.1; Platelet Count 233 10^3/uL (150-450); Red Blood Count 5.42 10^6 /uL (4.18-5.48); Red Cell Distribution Width 13 % (10-15); White Blood Count 7.9 10^3/uL (3.5-10.8)
[2018-12-12 15:58] LABS: Albumin 4.6 g/dL (3.2-5.2); Calcium 9.8 mg/dL (8.6-10.3); Potassium 4.5 mmol/L (3.5-5.0); Total Bilirubin 1.1 mg/dL (0.2-1.0)
[2018-12-12 16:04] LABS: Albumin/Globulin Ratio 1.5 (1-3); BUN/Creatinine Ratio 10.9 (8-20); C Reactive Protein 14.06 mg/L (<8.01); EGFR African American 85.2 (>60); EGFR Non-African American 70.4 (>60); Total Protein 7.6 g/dL (6.4-8.9)
[2018-12-12] MEDS ORDERED: Ketorolac INJ* 30 MG/ML 1 ML VIAL IV ONE (17:56)
--- NOTE | 2018-12-12 18:02 | ED ---
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 Pt states this pain radiates to his groin. He notes he was here 2 days ago for the same symptoms, but less severe. Pt never had these symptoms before. Pt has hx of kidney stones but states this is not similar. He has not had any ABD surgeries. The patient rates the pain 7/10 in severity, worse w movement. Patient reports right testicular pain, vomiting 2/2 pain, diaphoresis. Patient denies hematuria, dysuria, fever. Had a vastectomy w Dr. Monterroso 1 year ago. Fam hx diabetes, kidney stones. - History of Current Complaint Chief Complaint: EDAbdPain Stated Complaint: ABD PAIN PER PT Time Seen by Provider: 12/12/18 17:32 Hx Obtained From: Patient Onset/Duration: Sudden Onset, Lasting Hours - since earlier today, Still Present , Worse Since - 2 days ago Timing: Constant, Lasting Hours - since earlier today Severity Initially: Moderate Severity Currently: Moderate Pain Intensity: 7 Pain Scale Used: 0-10 Numeric Location: Flank - right Radiates: Yes Radiates to: Other - groin Aggravating Factor(s): Nothing Alleviating Factor(s): Nothing Associated Signs And Symptoms: Positive: Diaphoresis, Vomiting, Other - positive - right flank pain, right testicular pain. negative - hematuria, dysuria.. Negative: Fever - Allergies/Home Medications Allergies/Adverse Reactions: Allergies Allergy/AdvReac Type Severity Reaction Status Date / Time No Known Allergies Allergy Verified 12/09/18 08:31 PMH/Surg Hx/FS Hx/Imm Hx Previously Healthy: No Endocrine/Hematology History: Denies: Hx Diabetes, Hx Thyroid Disease Cardiovascular History: Denies: Hx Angina, Hx Coronary Artery Disease, Hx Hypercholesterolemia, Hx Hypertension, Hx Myocardial Infarction, Hx Valvular Heart Disease Respiratory History: Denies: Hx Asthma, Hx Chronic Obstructive Pulmonary Disease (COPD) GI History: Denies: Hx Ulcer History: Denies: Hx Renal Disease Sensory History: Denies: Hx Contacts or Glasses, Hx Legally Blind, Hx Deafness, Hx Hearing Aid Opthamlomology History: Denies: Hx Contacts or Glasses, Hx Legally Blind - Surgical History Surgical History: Yes Surgery Procedure, Year, and Place: wisdom teeth. Vasectomy 2018 Infectious Disease History: No Infectious Disease History: Denies: Hx Hepatitis, Hx Human Immunodeficiency Virus (HIV), History Other Infectious Disease, Traveled Outside the [place] in Last 30 Days - Family History Known Family History: Positive: Hypertension - Social History Alcohol Use: None Hx Substance Use: No Substance Use Type: Reports: None Substance Use Comment - Amount & Last Used: ADDERALL Hx Tobacco Use: Yes Smoking Status (MU): Former Smoker Type: Cigarettes Have You Smoked in the Last Year: No Review of Systems Positive: Skin Diaphoresis. Negative: Fever Gastrointestinal: Other - positive - right flank pain Positive: Vomiting Genitourinary: Other - positive - right testicular pain Negative: dysuria, hematuria Positive: Other All Other Systems Reviewed And Are Negative: Yes Physical Exam - Summary Physical Exam Summary: Constitutional: Well-developed, Well-nourished, Alert. (-) Distressed Skin: Warm, Dry HENT: Normocephalic; Atraumatic Eyes: Conjunctiva normal Neck: Musculoskeletal ROM normal neck. (-) JVD, (-) Stridor, (-) Nuchal rigidity Cardio: Rhythm regular, rate normal, Heart sounds normal; Intact distal pulses; Radial pulses are 2+ and symmetric. (-) Murmur Pulmonary/Chest wall: Effort normal. (-) Respiratory distress, (-) Wheezes, (-) Rales Abd: Soft, RLQ tenderness, Right testicular tenderness without swelling. (-) Distension, voluntary Guarding, (-) Rebound Musculoskeletal: (-) Edema Lymph: (-) Cervical adenopathy Neuro: Alert, Oriented x3 Psych: Mood and affect Normal Triage Information Reviewed: Yes Vital Signs On Initial Exam: Initial Vitals Temp Pulse Resp BP Pulse Ox 97.8 F 94 18 171/93 95 12/12/18 15:21 12/12/18 15:21 12/12/18 15:21 12/12/18 15:21 12/12/18 15:21 Vital Signs Reviewed: Yes Diagnostics - Vital Signs Vital Signs Temp Pulse Resp BP Pulse Ox 12/12/18 17:15 98.5 F 93 20 144/86 95 12/12/18 15:21 97.8 F 94 18 171/93 95 - Laboratory Lab Results: Lab Results 12/12/18 12/12/18 12/12/18 Range/Units 15:34 15:34 15:34 WBC 7.9 (3.5-10.8) 10^3/uL RBC 5.42 (4.18-5.48) 10^6 /uL Hgb 15.2 (14.0-18.0) g/dL Hct 44 (42-52) % MCV 81 (80-94) fL MCH 28 (27-31) pg MCHC 35 (31-36) g/dL RDW 13 (10-15) % Plt Count 233 (150-450) 10^3/uL MPV 7.5 (7.4-10.4) fL Neut % (Auto) 63.6 % Lymph % (Auto) 22.7 % [facility] % (Auto) 8.8 % Eos % (Auto) 4.1 % Baso % (Auto) 0.8 % Absolute Neuts (auto) 5.0 (1.5-7.7) 10^3/ul Absolute Lymphs (auto) 1.8 (1.0-4.8) 10^3/ul Absolute Monos (auto) 0.7 (0-0.8) 10^3/ul Absolute Eos (auto) 0.3 (0-0.6) 10^3/ul Absolute Basos (auto) 0.1 (0-0.2) 10^3/ul Absolute Nucleated RBC 0.0 10^3/ul Nucleated RBC % 0.1 Sodium 139 (135-145) mmol/L Potassium 4.5 (3.5-5.0) mmol/L Chloride 103 (101-111) mmol/L Carbon Dioxide 33 H (22-32) mmol/L Anion Gap 3 (2-11) mmol/L BUN 13 (6-24) mg/dL Creatinine 1.19 H (0.67-1.17) mg/dL Est GFR ( Amer) 85.2 (>60) Est GFR (Non-Af Amer) 70.4 (>60) BUN/Creatinine Ratio 10.9 (8-20) Glucose 137 H (70-100) mg/dL Lactic Acid 1.2 (0.5-2.0) mmol/L Calcium 9.8 (8.6-10.3) mg/dL Total Bilirubin 1.10 H (0.2-1.0) mg/dL AST 27 (13-39) U/L ALT 56 H (7-52) U/L Alkaline Phosphatase 78 (34-104) U/L C-Reactive Protein 14.06 H (<8.01) mg/L Total Protein 7.6 (6.4-8.9) g/dL Albumin 4.6 (3.2-5.2) g/dL Globulin 3.0 (2-4) g/dL Albumin/Globulin Ratio 1.5 (1-3) Lipase 17 (11.0-82.0) U/L Result Diagrams: 12/12/18 15:34 12/12/18 15:34 Lab Statement: Any lab studies that have been ordered have been reviewed, and results considered in the medical decision making process. Abdominal Pain Male Course/Dx - Course Course Of Treatment: 33-year-old male with a history of vasectomy presents with right lower quadrant and right testicular pain. - Negative CT several days ago for appendicitis, normal white count no fevers stable CRP. Low suspicion for appendicitis. Check an ultrasound of the scrotum given testicular pain for epididymitis, low suspicion for torsion given chronicity of symptoms. Recent negative UA and negative STD screening. - No e/o R sided hernia on exam or recent imaging. - Diagnoses Provider Diagnoses: Testicular pain, right, Rt groin pain Discharge ED - Sign-Out/Discharge Documenting (check all that apply): Sign-Out Patient Signing out patient TO: Norma Duff - This pt will be signed out from Dr. Liriano to Dr. Duff at 1900 12/12/18 shift change pending ultrasound and reevaluation. Patient Received Moderate/Deep Sedation with Procedure: No - Discharge Plan Condition: Stable Referrals: Orlando Denny MD [Primary Care Provider] - - Billing Disposition and Condition Condition: STABLE - Attestation Statements Document Initiated by Scribe: Yes Documenting Scribe: Salomon Herrera Provider For Whom Leland is Documenting (Include Credential): Dr. Fallon Liriano MD Scribe Attestation: Salomon Stevens, scribed for Dr. Fallon Liriano MD on 12/12 at 1935. Scribe Documentation Reviewed: Yes Provider Attestation: The documentation as recorded by the albertibflori, Salomon Herrera accurately reflects the service I personally performed and the decisions made by me, Dr. Fallon Liriano MD Status of Scribe Document: Viewed
--- NOTE | 2018-12-12 19:41 | ED ---
Progress - Progress Note Progress Note: Patient is received as a sign out from Dr. Liriano to Dr. Jarquin pending results of Testicular US at 1900 12/12/18 shift change. US TESTICULAR IMPRESSION: 1. No acute findings. No evidence of testicular torsion. 2. Slightly heterogeneous bilateral epididymal heads, possibly secondary to prior vasectomy. Normal blood flow. Tiny left epididymal head cyst. 3. Small left varicocele THIS REPORT WAS REVIEWED BY ED PHYSICIAN. 1924 - Dr. Monterroso was in ED. Patient's case was discussed with Dr. Monterroso. He states that the patient can be discharged to home and follow up with him in office tomorrow morning. 1943 - Patient is still in pain. He was given Oxycodone and Doxycycline in the ED and will be discharged to home with prescriptions for Doxycycline and Percocet. Results of US were discussed with the patient, he is agreeable with discharge to home and follow up with outpatient urology. Re-Evaluation - Re-Evaluation First Eval Re-Evaluation Time: 19:44 Comment: 1943 - Patient is still in pain. He was given Oxycodone and Doxycycline in the ED and will be discharged to home with prescriptions for Doxycycline and Percocet. Results of US were discussed with the patient, he is agreeable with discharge to home and follow up with outpatient urology. Course/Dx - Course Course Of Treatment: Patient is received as a sign out from Dr. Liriano to Dr. Jarquin pending results of Testicular US at 1900 12/12/18 shift change. US TESTICULAR IMPRESSION: 1. No acute findings. No evidence of testicular torsion. 2. Slightly heterogeneous bilateral epididymal heads, possibly secondary to. prior vasectomy. Normal blood flow. Tiny left epididymal head cyst. 3. Small left varicocele. THIS REPORT WAS REVIEWED BY ED PHYSICIAN. 1924 - Dr. Monterroso was in ED. Patient's case was discussed with Dr. Monterroso. He states that the patient can be discharged to home and follow up with him in office tomorrow morning. 1943 - Patient is still in pain. He was given Oxycodone and Doxycycline in the ED and will be discharged to home with prescriptions for Doxycycline and Percocet. Results of US were discussed with the patient, he is agreeable with discharge to home and follow up with outpatient urology. - Diagnoses Provider Diagnoses: Testicular pain, right, Rt groin pain - Provider Notifications Discussed Care Of Patient With: Favian Monterroso Time Discussed With Above Provider: 19:25 Instructed by Provider To: Other - 1924 - Dr. Monterroso was in ED. Patient's case was discussed with Dr. Monterroso. He states that the patient can be discharged to home and follow up with him in office tomorrow morning. Discharge ED - Sign-Out/Discharge Documenting (check all that apply): Patient Departure - discharge Patient Received Moderate/Deep Sedation with Procedure: No - Discharge Plan Condition: Stable Disposition: HOME Prescriptions: DOXYcycline CAP(*) [DOXYcycline 100MG CAP(*)] 100 mg PO BID 14 Days #28 cap oxyCODONE/Acetamin 5/325 MG* [Percocet 5/325 TAB*] 1 tab PO Q4H PRN 3 Days #15 tab MDD 6 PRN Reason: Pain-Severe/Temp >/= 100.4 Patient Education Materials: Testicle Pain (ED), Groin Pain (ED) Referrals: Favian Monterroso MD [Medical Doctor] - 1 Day Orlando Denny MD [Primary Care Provider] - 3 Days Additional Instructions: Please follow up with Dr. Monterroso, urology, tomorrow morning. Please return to ED for any new or worsening symptoms. - Billing Disposition and Condition Condition: STABLE Disposition: Home - Attestation Statements Document Initiated by Mateuszibe: Yes Documenting Scribe: KURT LEMA Provider For Whom Scribe is Documenting (Include Credential): GLENN JARQUIN MD Scribe Attestation: I, KURT LEMA, scribed for GLENN JARQUIN MD on 12/12/18 at 2002. Scribe Documentation Reviewed: Yes Provider Attestation: The documentation as recorded by the KURT ji accurately reflects the service I personally performed and the decisions made by me, GLENN JARQUIN MD Status of Scribe Document: Viewed
[2018-12-12] MEDS ORDERED: oxyCODONE TAB* 5 MG TAB PO ONE (19:44)
[2018-12-12] MEDS: DOXYcycline CAP(*) 100 MG PO SCH ×2 (19:59→20:00)
[2018-12-12 20:04] VITALS: BP 190/122
== END 2018-12-12 20:02 | disposition home or self-care (01) ==
LOC: ED 15:20
DX: N50.811 Right testicular pain (principal); R10.31 Right lower quadrant pain; Z87.891 Personal history of nicotine dependence
CPT/HCPCS: 36415; 76870; 80053; 83605; 83690; 85025; 86140; 96374; 99283; A9270-GY; J1885

== ENCOUNTER → 2019-01-24 06:31 | Day surgery (SDC) | payer BC ==
--- NOTE | 2019-01-19 13:46 | HP ---
CC: Dr. Orlando Denny * PREOPERATIVE HISTORY AND PHYSICAL: DATE OF ADMISSION/SURGERY: 01/24/19 This patient is scheduled for same-day surgery admission by Dr. Mcdermott on 01/24/19. DATE OF SERVICE: 01/19/19 ATTENDING SURGEON: Dr. Abraham Mcdermott * (dictated by Daya Trotter NP). CHIEF COMPLAINT: Bilateral groin hernias. HISTORY OF PRESENT ILLNESS: The patient is a 33-year-old male recently evaluated by Dr. Mcdermott for right lower quadrant abdominal pain that radiates to his groin. He states he has had this discomfort for about 2 years; however, more recently, the pain has become more severe. The pain radiates to the right groin. The patient states that he knew that he had a right inguinal hernia since he was about 15 years old. He has been to the emergency room on 2 separate visits for the right groin pain. He denies any signs or symptoms to suggest incarceration or strangulation and states that he has regular formed bowel movements 2 to 3 times a day and he denies any painful urination, although he has seen Dr. Monterroso for some urinary flow issues. Dr. Mcdermott examined the patient and noted bilateral inguinal hernias and has recommended laparoscopic bilateral inguinal hernia repair with mesh as a same day surgery procedure. Dr. Mcdermott described the nature of the surgical procedure, the rationale for the procedure, and the relevant risks and benefits. Today, I reviewed the typical postoperative care and recovery. The patient has had a chance to ask questions and stated he understands the information and is satisfied with the answers given to his questions. He will sign surgical consent on the day of surgery. PAST MEDICAL HISTORY: Generally healthy. He did have an admission to [facility] in 2017 for chest pain and had a complete cardiac workup and the diagnosis was GERD. He has had no recurrence of the chest pain. Obesity. PAST SURGICAL HISTORY: Vasectomy in 2018; wisdom tooth extraction. MEDICATIONS: None currently. ALLERGIES: No known drug allergies. FAMILY HISTORY: No known anesthesia complications, bleeding tendencies, or clotting disorders. 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 He quit smoking in 2017 after smoking 1 to 2 packs per week starting at age 22; he denies the use of alcohol or other substances. REVIEW OF SYSTEMS: Constitutional: No fevers, chills, excessive fatigue, or weight loss. Endocrine: No diabetes or thyroid disease. Hematologic: No easy bruising or bleeding. Breasts: Tenderness around the nipple areolar complex associated with dense tissue when compared to the right breast. No nipple discharge. Respiratory: No dyspnea on exertion or chronic cough. Cardiovascular: No recent anginal chest pain or palpitations. Gastrointestinal : No nausea, vomiting, diarrhea, GI bleeding, or constipation or change in bowel habits. No GERD. Genitourinary: No painful urination, but he has seen Dr. Monterroso for urinary flow issues. Musculoskeletal: Normal strength and tone. Integumentary: No chronic rashes or skin changes. Neurologic: No headache, blurred vision, or areas of focal weakness or numbness. Psychiatric: No depression or insomnia. General: No previous anesthesia complications. No history of deep vein thrombosis or pulmonary embolism. No history of blood transfusions. PHYSICAL EXAMINATION GENERAL SURVEY: The patient is a 33-year-old obese male, well developed, in no acute distress. VITAL SIGNS: Height 79 inches, weight 370 pounds, body mass index 41.7. Blood pressure 138/78, pulse 72 and regular, respiratory rate 16; temperature 97.7, tympanic. HEENT: Benign. NECK: Supple. No cervical lymphadenopathy. No supraclavicular lymphadenopathy. LUNGS: Breath sounds bilaterally clear and equal. HEART: Regular rate and rhythm. No murmurs or rubs appreciated. BREASTS: Left breast with palpable dense tissue in the periareolar area when compared to the right breast. There is significant tenderness and sensitivity to palpation of the nipple areolar complex. There is no nipple discharge. The right breast has no palpable masses or dense tissue. There is no nipple areolar complex sensitivity or nipple discharge. There is no axillary adenopathy bilaterally. BACK: No CVA tenderness. ABDOMEN: Obese, active bowel sounds, soft, nontender and nondistended. No obvious masses or organomegaly, but exam is limited by body habitus. Inguinal exam was done by Dr. Mcdermott and bilateral inguinal hernias were noted. The testicles are normally descended without lesions. RECTAL EXAM: Deferred. EXTREMITIES: Warm. There is mild bilateral ankle edema. No skin ulcerations. NEUROLOGIC: Alert and oriented x3. Steady gait. SKIN: Warm, dry, intact. DIAGNOSTIC TESTING/LAB DATA: Imaging: CAT scan reviewed by Dr. Mcdermott from 10/20 revealed fat-containing bilateral inguinal hernias; testicular ultrasound report reviewed and showed no torsion. Urinalysis from December 2018 was within normal limits. IMPRESSION: Bilateral inguinal hernias. PLAN: Same-day surgery admission to Dr. Mcdermott's service on 01/24/19 , for laparoscopic bilateral inguinal hernia repair with mesh. The patient will also be referred to Dr. Ruff for followup on possible left gynecomastia. ROLANDA TROTTER, DRIVE IN WAITER/WAITRESS [id number]/CPS #: [id number] DONA
[~2019-01-24 06:31] MED LIST: Buffered Lidocaine 1% SYRIN* 1 ML/SYRINGE INTRADERM ONE; Bupivacaine 0.25% SDV PF* 10 ML VIAL INJ ONE; Dexamethasone IV* 4 MG/ML 1 ML (4 MG) IV SLOW PU ONE; Dexamethasone IV* 4 MG/ML 1 ML (4 MG) ONE; DiMENhydriNATE IV* 50 MG/ML VIAL IV PUSH PRN; DiMENhydriNATE IV* 50 MG/ML VIAL ONE; Famotidine IV* 10 MG/ML 2 ML (20 mg) IV ONE; Famotidine IV* 10 MG/ML 2 ML (20 mg) ONE; Glycopyrrolate IV* 0.2 MG/ML 1 ML VIAL ONE; HYDROcodone/ACETAMIN 5-325 MG* 1 TAB ONE; HYDROcodone/ACETAMIN 5-325 MG* 1 TAB PO PRN; Ketorolac INJ* 30 MG/ML 1 ML VIAL ONE; Lactated Ringers 1000 ML Bag* 1,000 ML IV SCH; Lidocaine 2% PF * 5 ML VIAL ONE; Midazolam* 1 MG/ML 5 ML VIAL (5 MG) ONE; Naloxone* 0.4 MG/ML 1 ML VIAL IV PRN; Neostigmine Methylsulfate* 3 MG/3 ML SYRINGE ONE; Ondansetron INJ* 2 MG/ML VIAL ONE; Propofol* 10 MG/ML 20 ML BTL ONE; Rocuronium* 10 MG/ML VIAL ONE; Succinylcholine* 20 MG/ML 10 ML VIAL ONE; ceFAZolin 1 GM ADVAN(*) 1 GM ADDV.VIAL IVPB ONE; ceFAZolin 2 GM PREMIX in ORs 2 GM/50 ML BAG ONE; fentaNYL* 50 MCG/ML 2 ML VIAL (100 MCG VIAL) IV PRN; fentaNYL* 50 MCG/ML 2 ML VIAL (100 MCG VIAL) ONE; oxyCODONE/Acetamin 5/325 MG* TAB ONE
--- NOTE | 2019-01-24 10:22 | BRIEFOPN ---
Brief Operative/Procedure Note - Operation Details Pre-Op Diagnosis: Bilateral inguinal hernia Post-Op Diagnosis: same as above Procedures: Laparoscopic bilateral inguinal hernia repair with mesh Surgeon(s)/Proceduralists: Dr. Mcdermott. Assist: KELLY Moore; Mena BROWN Anesthesia: GET; Dr. Dumont Estimated Blood Loss: <5ml; IV Fluids: 1400ml LR; Galeano: 500ml Findings: same as above Specimen(s)/Culture(s) Description: none Complications: none
[2019-01-24] MEDS: oxyCODONE/Acetamin 5/325 MG* TAB PO PRN ×2 (10:45→10:49)
[2019-01-24 12:21] VITALS: BP 136/74
--- NOTE | 2019-01-24 20:06 | OP ---
CC: PCP, Orlando Denny MD * DATE OF OPERATION: 01/24/19 - [facility] DATE OF : 85 SURGEON: Abraham Mcdermott MD COMMUNITY PRODUCT SPECIALIST: KELLY Anguiano ANESTHESIOLOGIST: Dr. Dumont. ANESTHESIA: General anesthesia. PRE-OP DIAGNOSIS: Bilateral inguinal hernias. POST-OP DIAGNOSIS: Bilateral inguinal hernias. OPERATIVE PROCEDURE: Laparoscopic bilateral inguinal hernia repair with mesh. FLUIDS: 1400 cc of crystalloid fluid given. ESTIMATED BLOOD LOSS: Minimal blood loss, less than 50 cc. Galeano catheter inserted at the time of surgery with 500 cc out and removed at the end of surgery. SPECIMENS: None. COMPLICATIONS: None. DESCRIPTION OF PROCEDURE: The patient was identified in the preoperative area, he was marked appropriately, consent was signed. He was taken to the operating room and placed on the operating room table in a supine position. Preoperative antibiotics were given, sequential devices were placed on bilateral lower extremities and general anesthesia was induced. The patient's abdomen was clipped of hair, prepped and draped in the standard surgical fashion after time- out was performed. An infraumbilical incision was made. This was deepened down to the anterior fascia on the left which was incised and the rectus pillar retracted laterally. We entered into the preperitoneal space and blunt dissection was carried out. We then placed a 12 mm blunt port into the space and allowed it to insufflate to a pressure of 12 mmHg. The patient tolerated the insufflation well. Laparoscope was inserted through this and blunt dissection was carried out with a camera down to the pubic symphysis and we opened up enough space to allow for the placement of 2 additional 5 mm trocars along the midline. Next we freed up the Merritt's ligament on the left and then on the right. We then turned our attention to direct space. There was no evidence of a hernia. The epigastric vessels were maintained anteriorly and space above was opened laterally. Peritoneum extending towards the inguinal canal was then grasped and we walked this up towards the inguinal canal where we dissected a small hernia sac from the surrounding structures. These structures were skeletonized and a large lipoma of the cord were dissected free. Attention was then turned towards the left side, similar dissection was carried out. On this side the hernia sac extended more significantly along with the spermatic structures and then both blunt and sharp dissection was carried out to free this from the spermatic structures which additionally were skeletonized and a very large lipoma of the cord reduced. Next a large 3D Max mesh was then placed into the preperitoneal space, allowed to unfurl. This was the right-sided one and it was placed into the right groin , intact to the Merritt's ligament as well as laterally taking care not to be in the area of the triangle of doom. The mesh laid covering the full myopectineal orifice without stretch or wrinkling. Similar mesh was then placed on the left side. This was a left-sided large barred 3D-Max mesh. They did cross the midline and as well as the Merritt 's ligament and also laterally. The preperitoneal space was then allowed to collapse. Trocars were removed under direct vision and the umbilical fascia was reapproximated with an 0-Vicryl suture in a [id number] fashion. The wound was then irrigated, hemostasis achieved, and all 3 skin incisions were reapproximated with 4-0 Monocryl subcuticular sutures followed by Steri-Strips and sterile dressings. The patient tolerated the procedure well, was woken up in the OR and transferred to the PACU in stable condition. [id number]/CPS #: [id number] DONA
== END | disposition home or self-care (01) ==
LOC: OR 06:31
PROVIDERS: ATTEND Surgery
DX: K40.20 Bilateral inguinal hernia, without obstruction or gangrene, not specified as recurrent (principal); Z87.891 Personal history of nicotine dependence; K21.9 Gastro-esophageal reflux disease without esophagitis; E66.01 Morbid (severe) obesity due to excess calories
CPT/HCPCS: A9270-GY; C1781; J0330; J0690; J1100; J1240; J1885; J2250; J2405; J2704; J2710; J3010; J3490

== ENCOUNTER 2019-06-05 14:44 | Emergency (ER) | payer BC ==
--- NOTE | 2019-06-05 14:58 | UC ---
FLU HPI - HPI Summary HPI Summary: 33 yo male presents with flu-like symptoms. He tells me that for the last few weeks he has been having sinus congestion and post nasal drip. Today he developed fatigue, body aches, nausea, and feeling hot/cold. No cough. He has not taken anything OTC for his symptoms. He denies sore throat, rash, SOB, chest pain, abdominal pain, dysuria. - History of Current Complaint Stated Complaint: FLU SYMPTOMS Time Seen by Provider: 06/05/19 14:57 Hx Obtained From: Patient Onset/Duration: Sudden Onset Severity Currently: Moderate Severity Initially: Mild Pain Intensity: 5 Pain Scale Used: 0-10 Numeric - Allergy/Home Medications Allergies/Adverse Reactions: Allergies Allergy/AdvReac Type Severity Reaction Status Date / Time No Known Allergies Allergy Verified 01/24/19 07:14 Home Medications: Home Medications NK [No Home Medications Reported] 01/17/19 [History Confirmed 06/05/19] PMH/Surg Hx/FS Hx/Imm Hx - Additional Past Medical History Additional PMH: None - Surgical History Surgical History: Yes Surgery Procedure, Year, and Place: wisdom teeth. Vasectomy 2017 - Family History Known Family History: Positive: Hypertension - Social History Lives: With Family Alcohol Use: None Substance Use Type: None Smoking Status (MU): Former Smoker Type: Cigarettes Have You Smoked in the Last Year: No When Did the Patient Quit Smoking/Using Tobacco: 2017 - Immunization History Most Recent Tetanus Shot: fall 2012 Review of Systems All Other Systems Reviewed And Are Negative: No Constitutional: Positive: Chills, Fatigue, Other - Body aches Skin: Positive: Negative Eyes: Positive: Negative ENT: Positive: Nasal Discharge Respiratory: Positive: Negative Cardiovascular: Positive: Negative Gastrointestinal: Positive: Nausea Genitourinary: Positive: Negative Neurological/Mental Status: Positive: Negative Psychological: Positive: Negative Physical Exam - Summary Physical Exam Summary: GENERAL: NAD. WDWN. No pain distress. SKIN: No rashes, sores, lesions, or open wounds. HEENT: Head: AT/NC Eyes: EOM intact. Conjunctiva clear without inflammation or discharge. Ears: Hearing grossly normal. TMs intact, no bulging, erythema, or edema. Nose: Nasal mucosa pink and moist. NTTP maxillary and frontal sinus. Throat: Posterior oropharynx without exudates, erythema, or tonsillar enlargement. Uvula midline. NECK: Supple. Nontender. No lymphadenopathy. CHEST: CTAB. No r/r/w. No accessory muscle use. Breathing comfortably and in no distress. CV: RRR. Pulses intact. Cap refill <2seconds NEURO: Alert. PSYCH: Age appropriate behavior. Triage Information Reviewed: Yes Vital Signs: Vital Signs: Temp Pulse Resp BP Pulse Ox 97.9 F 97 18 124/75 95 06/05/19 14:53 06/05/19 14:53 06/05/19 14:53 06/05/19 14:53 06/05/19 14:53 Laboratory Tests 06/05/19 14:58 Influenza A (Rapid) Negative Influenza B (Rapid) Negative Vital Signs Reviewed: Yes Flu Course/Dx - Course Course Of Treatment: POC flu negative. Exam WNL. Suspect viral illness. Advised to try OTC supportive care, rest, and drink plenty of fluids. Recheck with PCP if symptoms worsen or do not improve within 5-7 days - Differential Dx/Diagnosis Provider Diagnosis: Viral syndrome Discharge ED - Sign-Out/Discharge Documenting (check all that apply): Patient Departure All imaging exams completed and their final reports reviewed: No Studies - Discharge Plan Condition: Stable Disposition: HOME Patient Education Materials: Viral Syndrome (ED) Referrals: Orlando Denny MD [Primary Care Provider] - Additional Instructions: YOUR FLU TEST WAS NEGATIVE TODAY, BUT YOUR SYMPTOMS ARE VERY FLU-LIKE IN NATURE AND SHOULD RESOLVE WITH SUPPORTIVE CARE. Your symptoms are likely from a viral infection. Viral infections do not respond to antibiotics and are limited to the treatment of symptoms. Viral infections typically run their course in 7-10 days. Drink plenty of fluids, especially if you are running any fever. Use salt water gargles several times a day. Take over the counter acetaminophen (Tylenol) or ibuprofen (Advil, Motrin) according to directions as needed for pain or fever. You may also use Chloraseptic spray or Cepacol lonzenges according to directions which contain a numbing medication and can provide some temporary relief from a sore throat. Return here or follow up with your primary care provider in 5 days if symptoms persist. - Billing Disposition and Condition Condition: STABLE Disposition: Home
[2019-06-05 15:01] VITALS: BP 124/75
[2019-06-05 15:11] LABS: Influenza A Molecular Negative (Negative); Influenza B Molecular Negative (Negative)
== END 2019-06-05 15:17 | disposition home or self-care (01) ==
LOC: UCEAST 14:44
DX: B34.9 Viral infection, unspecified (principal); R09.81 Nasal congestion; R09.82 Postnasal drip; R53.83 Other fatigue; R52 Pain, unspecified; R11.0 Nausea; Z87.891 Personal history of nicotine dependence
CPT/HCPCS: 99211; G0463